=== PATIENT | female | born 1960 | race Hispanic/Latino ===

== ENCOUNTER 2016-07-07 11:30 | Day surgery (SDC) | payer OTHER ==
[~2016-07-07] VITALS: Ht 157.5 cm; Wt 85.5 kg
--- NOTE | 2016-07-07 07:28 | PCM.HPANE ---
Patient Data Surgeon Admitting Provider: Attending Provider:Wilmer Burns MD Primary Care Physician:Isidoro Sandoval MD Other Provider:Assoc[facility]ylie[facility]bold Anesthesia Reason for Visit Screening Ht/WT & BMI Body Mass Index Allergies Coded Allergies: No Known Allergies (Unverified , 07/05/16) Medications Reported Medications Darunavir Ethanolate (Prezista)800 Mg Mialbo447 Mg PO DAILY 07/07/16 Maraviroc (Selzentry)150 Mg Mrclrz360 Mg PO BID 07/07/16 Ritonavir (Norvir)100 Mg Ezushv753 Mg PO DAILY 07/07/16 Lamivudine 150 Mg Ukzzve249 Mg PO BID 07/07/16 [No meds H&P] No Conflict Check 07/05/16 History Other Pertinent History: HIV under treatment Stop/Bang Risk Assessment Category Category 1A: Patient has history of documented sleep apnea, and HAS NOT received any narcotic, sedative or anesthesia administration during this stay. Category 1B: Patient has history of documented sleep apnea, and HAS received any narcotic , sedative or anesthesia administration during this stay Category 2: Patient has SUSPECTED Obstructive Sleep Apnea, and HAS received any narcotic , sedative or anesthesia administration during this stay. Category 3: Patient has SUSPECTED Obstructive Sleep Apnea and HAS NOT received narcotic, sedative or anesthesia administration during this stay. Category 4: Outpatient in Procedural Areas with known sleep apnea or who screen positive for High Risk via the STOP/BANG questionnaire. Exam Exam General Appearance: Alert, Oriented X3, Cooperative, No Acute Distress HEENT/AIRWAY: MP 2 Lungs: Clear to Auscultation, Normal Air Movement Heart: Exam Unremarkable, Regular Rate/Rhythm, No Murmurs/Rubs/Gallops Plan Impression Patient chart reviewed, patient interviewed and anesthestic plan with risks, benefits, and alternatives discussed, and informed consent obtained. ASA Physical Status: ASA2 Mod Systemic Disease Anesthetic Plan: MAC Bene/Risks/Altern/Consents: Yes HP Complete Prior to Induction: Yes Chris Norton MD Jul 07, 2016 07:28
[~2016-07-07 11:30] MED LIST: Lactated Ringer's 1,000 ML IV ONE; [UNRECOGNIZED DRUG - REMARK]
[2016-07-07] MEDS ORDERED: fentaNYL-PF 50 mCg/mL 2 mL Inj ONE (11:31)
[2016-07-07] MEDS ORDERED: Propofol 10,000 mCg/mL 20 mL Inj ONE (11:31)
[2016-07-07 12:28] VITALS: BP 125/69; PULSE 65; RESP 14; O2SAT 97
[2016-07-07] MEDS ORDERED: DARU800T2 PO (12:34)
[2016-07-07] MEDS ORDERED: RITO100T PO (12:34)
[2016-07-07] MEDS ORDERED: MARA150T PO (12:34)
[2016-07-07] MEDS ORDERED: LAMI150T23 PO (12:34)
[2016-07-07] MEDS ORDERED: Lactated Ringer's 1,000 ML IV SCH (13:04)
[2016-07-07] MEDS ORDERED: MetoCLOpramide 5 mg/mL 2 mL Inj IVPUSH PRN (13:05)
[2016-07-07] MEDS ORDERED: Ondansetron 2 mg/mL 2 mL Inj IVPUSH PRN (13:05)
--- NOTE | 2016-07-07 13:05 | PCM.ANEP1 ---
Post Anesthesia Phase 1 PACU Phase 1 Assessment Vital Signs Vital Signs Date Time Temp Pulse Resp B/P Pulse Ox O2 Delivery O2 Flow Rate FiO2 07/07/16 12:28 36.2 65 14 125/69 97 Room Air Anesthetic Administered: MAC Level of Alertness: Awake, talking Pain: No Nausea or Vomiting: No Oxygen Delivery: Nasal Cannula Lungs: Clear to Auscultation, Normal Air Movement Chris Norton MD Jul 07, 2016 13:05
[2016-07-07 13:09] VITALS: BP 121/72; PULSE 83; RESP 10; O2SAT 93
--- NOTE | 2016-07-07 13:12 | PCM.ANEP2 ---
Post Anesthesia Evaluation ASA/CMS Post Anesthesia VS in Patient's Normal Range?: Yes Resp Stable; Airway Patent?: Yes CV Function & Hydration Stable: Yes Mental Status Recovered?: Yes Pain control Satisfactory?: Yes N/V Control Satisfactory?: Yes Chris Norton MD Jul 07, 2016 13:12
[2016-07-07 13:19] VITALS: BP 121/71; PULSE 86; RESP 10; O2SAT 96
--- NOTE | 2016-07-07 14:06 | ENDO ---
[address] [address] ENDOSCOPY PROCEDURE PATIENT: JUDITH ARCOS : 1960 MR#: [id number] ADMIT: 07/07/2016 JOB ID: [id number] OPERATION: Colonoscopy. PREOPERATIVE DIAGNOSIS(ES): Colorectal cancer. POSTOPERATIVE DIAGNOSIS(ES): Small internal hemorrhoids. ANESTHESIA: Monitored anesthesia care. COMPLICATIONS: None. BLOOD LOSS: Minimal. DESCRIPTION OF PROCEDURE: After the risks and benefits were explained to the patient, informed consent was obtained. After anesthesia administered, the colonoscope was inserted per rectum to the cecum and the mucosa carefully examined. Prep of the patient was excellent. After the procedure was done, the scope was withdrawn and the procedure terminated. FINDINGS: Upon inspection of the anus, there was evidence of anal skin tags that were seen during the examination. During the entire colonoscopy procedure there was no evidence of colon polyps, masses, or lesions that were seen. Retroflexion showed small internal hemorrhoids. IMPRESSION: Small internal hemorrhoids. RECOMMENDATIONS: Stool softer as needed. Next colonoscopy in 10 years for colorectal cancer screening.
[2016-07-12] MEDS ORDERED: HIV PO (15:06)
[2016-07-12] MEDS ORDERED: GABA-502 PO (15:06)
[2016-07-12] MEDS ORDERED: TRAZ-115 PO (15:06)
[2016-07-12] MEDS ORDERED: NAPR500T5 PO (15:06)
[2016-07-12] MEDS ORDERED: BACL10TA PO (15:06)
== END 2016-07-07 23:59 | disposition home or self-care (01) ==
LOC: END 11:30
PROVIDERS: ATTEND Internal Medicine Gastroenterology
DX: Z12.11 Encounter for screening for malignant neoplasm of colon (principal); K64.8 Other hemorrhoids; M79.7 Fibromyalgia; R68.89 Other general symptoms and signs; Z21 Asymptomatic human immunodeficiency virus [HIV] infection status
CPT/HCPCS: G0105; J2250; J3010; J7120

== ENCOUNTER 2016-07-14 12:32 | Day surgery (SDC) | payer OTHER ==
[2016-07-14] VITALS (8 sets, daily range): BP systolic 120–146; BP diastolic 67–84; PULSE 67–72; RESP 15–20; O2SAT 94–100
[~2016-07-14] VITALS: Ht 157.5 cm; Wt 84.2 kg
[~2016-07-14 12:32] MED LIST changes: +BACL10TA PO; +CeFAZolin Inj 2 GM in IV Premix 1 EACH IV ONE; +DARU800T2 PO; +GABA-502 PO; +HIV PO; -Lactated Ringer's 1,000 ML IV ONE; +Lactated Ringer's 1,000 ML IV SCH; +MARA150T PO; +NAPR500T5 PO; +RITO100T PO; +TRAZ-115 PO; -[UNRECOGNIZED DRUG - REMARK]
[2016-07-14] MEDS ORDERED: MetoCLOpramide 5 mg/mL 2 mL Inj ONE (12:33)
[2016-07-14] MEDS ORDERED: Ondansetron 2 mg/mL 2 mL Inj ONE (12:33)
[2016-07-14] MEDS ORDERED: Propofol 10,000 mCg/mL 20 mL Inj ONE (12:33)
[2016-07-14] MEDS ORDERED: Dexamethasone 4 mg/mL Inj ONE (12:33)
[2016-07-14] MEDS ORDERED: fentaNYL-PF 50 mCg/mL 2 mL Inj ONE (12:33)
[2016-07-14] MEDS ORDERED: Lactated Ringer's 1,000 ML IV ONE (12:50)
[2016-07-14] MEDS ORDERED: CeFAZolin Inj 2 gm / 50mL D5W IV ONE (13:13)
[2016-07-14] MEDS ORDERED: Bupivacaine Liposome 1.3% 20 mL Inj INFILTRATE ONE (13:55)
[2016-07-14] MEDS ORDERED: oxyCODONE-Acetamin 5-325 mg Tablet PO PRN (14:30)
[2016-07-14] MEDS ORDERED: Lactated Ringer's 500 ML IV PRN (14:36)
[2016-07-14] MEDS ORDERED: Lactated Ringer's 1,000 ML IV SCH (14:36)
[2016-07-14] MEDS ORDERED: MetoCLOpramide 5 mg/mL 2 mL Inj IVPUSH PRN (14:40)
[2016-07-14] MEDS ORDERED: Ondansetron 2 mg/mL 2 mL Inj IVPUSH PRN (14:40)
[2016-07-14] MEDS ORDERED: Dexamethasone 4 mg/mL Inj IVPUSH PRN (14:40)
[2016-07-14] MEDS ORDERED: fentaNYL-PF 50 mCg/mL 2 mL Inj IVPUSH PRN (14:40)
[2016-07-14] MEDS ORDERED: EPHEDrine Sulfate 50 mg/mL Inj IVPUSH PRN (14:40)
[2016-07-14] MEDS ORDERED: HYDROmorphone 1 mg/mL Inj IVPUSH PRN (14:40)
[2016-07-14] MEDS ORDERED: Phenylephrine 10,000 mCg/mL Inj IVPUSH PRN (14:40)
--- NOTE | 2016-07-14 15:00 | OP ---
[address] [address] OPERATIVE REPORT PATIENT: JUDITH ARCOS : 1960 MR#: [id number] ADMIT: 07/14/2016 JOB ID: [id number] DATE OF SURGERY: 07/14/2016 ANESTHESIA: General. PREOPERATIVE DIAGNOSIS(ES): 1. Human immunodeficiency virus. 2. Symptomatic hemorrhoids. POSTOPERATIVE DIAGNOSIS(ES): 1. Human immunodeficiency virus. 2. Symptomatic hemorrhoids. OPERATION: One column internal-external hemorrhoidectomy and one column internal hemorrhoidectomy. SURGEON: Dr. Romulo Montes. LAB SUPPORT SERVICE TECH: John Bush PA-C (the sales service assistant was required for the safe and timely completion of the case). COMPLICATIONS: None. ESTIMATED BLOOD LOSS: Minimal. CONDITION: Satisfactory. SPECIMEN: 1. Left posterior internal/external hemorrhoids. 2. Right internal hemorrhoids. FINDINGS: She had enlarged hemorrhoids in the left posterior location and the right anterior. The left posterior external component had a little bit of fungating growth suggestive of condyloma. INDICATIONS/SIGNIFICANT HISTORY: The patient is a 56-year-old female with a history of HIV who was referred to me for complaint of an anal growth. She described constipation off and on and the painful lump in the anal area. Exam demonstrated hemorrhoids, both internal and external. OPERATIVE TECHNIQUE: The patient was taken into the operating room and placed supine position. General anesthesia was administered and she was placed in the lithotomy and the perineum prepped and draped in a standard surgical fashion. A procedural pause performed. I began with digital rectal examination which was unremarkable. I then inserted a bivalve retractor into the anus and elected to proceed with left posterior hemorrhoid column with a large external and internal component. This was removed using the LigaSure Precise taking care to avoid the sphincter complex. This was then turned to the right anterior column which was removed in a similar fashion. Liposomal bupivacaine was injected at the base of the hemorrhoid column. The case was then considered closed. [facility]
--- NOTE | 2016-07-14 18:43 | PCM.ANEP1 ---
Post Anesthesia Phase 1 PACU Phase 1 Assessment Date of Service: Jul 14, 2016 ([id number]) Vital Signs Vital Signs Date Time Temp Pulse Resp B/P Pulse Ox O2 Delivery O2 Flow Rate FiO2 07/14/16 15:22 36 71 16 144/80 94 Room Air 07/14/16 15:00 72 20 134/74 95 Room Air 07/14/16 14:55 36.0 72 18 143/83 97 Room Air 07/14/16 14:45 36.0 67 15 123/67 100 Room Air 07/14/16 14:40 69 15 121/70 100 Simple Mask 7 07/14/16 14:35 71 15 133/69 100 Simple Mask 7 07/14/16 14:30 36.6 120/76 07/14/16 13:38 36.5 69 16 146/84 100 Room Air Anesthetic Administered: GA Level of Alertness: Awake, talking MAYO's with Equal Strength: Yes Pain: No Pain Scale Score: 0 Nausea or Vomiting: No Oxygen Delivery: Simple Mask Lungs: Normal Air Movement Franc Oh MD Jul 14, 2016 18:43
--- NOTE | 2016-07-14 18:43 | PCM.HPANE ---
Patient Data Date of Service: Jul 14, 2016 ([id number]) Surgeon Admitting Provider: Attending Provider:Romulo Montes MD Primary Care Physician:Isidoro Sandoval MD Other Provider:Ronaldo Leggett Anesthesia Reason for Visit Chronic Hemorrhoids Ht/WT & BMI Height (Feet): 5 Height (Inches): 2 Weight (Kilograms): 84.2 Body Mass Index 34.00 Allergies Coded Allergies: No Known Allergies (Unverified , 07/05/16) Past Anesthesia History Anesthesia History: Denies:: Abnormal Airway, Anesthesia Reactions, Difficult Intubation, Fam Anesthesia Reaction, Fam Malignant Hypertherm, Malignant Hyperthermia Diabetes History Hx Diabetes?: No MRSA MRSA: No Medications Hypertension Medication: No Home Meds Incl Beta Jose M: No Reported Medications Trazodone 50 Mg Mrxhvf38-42 Mg PO HS Ref 0 07/12/16 Naproxen 500 Mg Tablet.dr500 Mg PO BID PRN For Pain Ref 0 07/12/16 Gabapentin 300 Mg Ybbgfoi103 Mg PO BID Ref 0 07/12/16 Lamivudine/Zidovudine (Combivir Tablet)1 Each Tablet1 Each PO BID 30 Days 07/12/16 Baclofen 10 Mg Wuzeav92 Mg PO TID Ref 0 07/12/16 Darunavir Ethanolate (Prezista)800 Mg Rnjsft486 Mg PO DAILY 07/07/16 Maraviroc (Selzentry)150 Mg Onmhvp204 Mg PO BID 07/07/16 Ritonavir (Norvir)100 Mg Kadijc650 Mg PO DAILY 07/07/16 Discontinued Reported Medications Lamivudine 150 Mg Kylazf284 Mg PO BID 07/07/16 [No meds H&P] No Conflict Check 07/05/16 History HEENT History: Denies:: Abnormal Airway Difficult Intubation Dysphagia Hearing Problem Denture Type: Full- Upper Hx of Heart Problems?: No Cardiovascular History: Denies:: AICD Atrial Fibrillation Chest Pain Hypertension Pacemaker Valvular Heart Disease Other Cardiac History: NO sob Hx of Respiratory Problem?: Yes Respiratory History: Positive for:: Asthma (INTERMITTENT) Pneumonia Denies:: COPD Cough Hemoptysis Oxygen Administration Tuberculosis Use of C-PAP Machine Use of Inhalers / NEBS Hx Neurologic Problems?: No Neurological History: Denies:: CVA Dementia Multiple Sclerosis Parkinson's Disease Seizures Other Neurological Pertinent: fibromyalgia Hx of GI Problems?: Yes Gastrointestinal History: Positive for:: Gall Bladder Disease (removed) Liver Disease (hepatitis C) Rectal Bleeding (hemorrhoids current admission problem) Denies:: Cirrhosis Diverticulitis Gastroesphageal Reflux Hiatal Hernia Other GI Pertinent History: hx of umbilical hernia repair Hx of Problems?: No Genitourinary History: Denies:: Kidney Stones Urinary Tract Infection Female Hx: Denies:: Currently Problems with Breasts? Skin History: Denies:: History Skin Disorders? Hx Musculoskeletal Problems?: Yes Musculoskeletal History: Positive for:: Fibromyalgia Denies:: Joint Replacement Musculoskeletal Trauma Myasthenia Gravis Osteoarthritis Psycho Social History: Denies:: Anxiety Hx Depression Hx Surgeries?: Yes (CSECTION, LAP ASA, ABD HERNIA REPAIR) Hx Any Other Health Problems?: Yes Other History: Denies:: Cancer Thyroid Disease Hx Diabetes: No Other Pertinent History: HIV positive on HAART tx; CD4 unknown - last month tested - normal levels per patient Hx Alcohol Use: NoHx Substance Use: No Smoking Status: Never Smoker Have You Smoked inLast 12 mo: No Stop/Bang Treated for Sleep Apnea?: No Do You Have a CPAP Machine?: No S-Snoring: Do You Snore Loudly: No T-Tired: feel tired, fatigued: No O-Obsered: Observed not breath: No P-Blood Pressure: treated: Yes B- Body Mass Index > 35 kg/m2: No A- Age over 50: No N- Neck Large Circumference: No G- Gender Male: No YOLANDA Risk Assessment: Low Risk, <3 Yes Risk Assessment Category Category 1A: Patient has history of documented sleep apnea, and HAS NOT received any narcotic, sedative or anesthesia administration during this stay. Category 1B: Patient has history of documented sleep apnea, and HAS received any narcotic , sedative or anesthesia administration during this stay Category 2: Patient has SUSPECTED Obstructive Sleep Apnea, and HAS received any narcotic , sedative or anesthesia administration during this stay. Category 3: Patient has SUSPECTED Obstructive Sleep Apnea and HAS NOT received narcotic, sedative or anesthesia administration during this stay. Category 4: Outpatient in Procedural Areas with known sleep apnea or who screen positive for High Risk via the STOP/BANG questionnaire. Exam Exam Vital Signs Vital Signs Date Time Temp Pulse Resp B/P Pulse Ox O2 Delivery O2 Flow Rate FiO2 07/14/16 15:22 36 71 16 144/80 94 Room Air 07/14/16 15:00 72 20 134/74 95 Room Air 07/14/16 14:55 36.0 72 18 143/83 97 Room Air 07/14/16 14:45 36.0 67 15 123/67 100 Room Air 07/14/16 14:40 69 15 121/70 100 Simple Mask 7 07/14/16 14:35 71 15 133/69 100 Simple Mask 7 07/14/16 14:30 36.6 120/76 07/14/16 13:38 36.5 69 16 146/84 100 Room Air General Appearance: Alert, Oriented X3, Cooperative, No Acute Distress HEENT/AIRWAY: MP 2, Neck Movement (FROM), Mouth Opening (3), Other (tmd3) Lungs: Normal Air Movement Heart: Exam Unremarkable, Regular Rate/Rhythm, Normal S1, Normal S2, No Murmurs /Rubs/Gallops Meds/Labs/Diagnostics Admission Meds Current Medications Cefazolin Sodium/ Dextrose 2 gm/ Premix 50 ml @ 100 mls/hr PREOP ONCE IV Last administered on 07/14/16 14:09; Start 07/14/16 at 06:00; Stop 07/14/16 at 06: 29; Status DC Lactated Ringer's (Lr) 1,000 ml @ ud STK-MED ONCE IV Last administered on 12:50; Start 07/14/16 at 12:50; Stop 07/14/16 at 13:02; Status DC Bupivacaine HCl (Exparel 1.3% Inj) 20 ml ONCE ONCE INFILTRATE Last administered on 07/14/16 14:12; Start 07/14/16 at 13:55; Stop 07/14/16 at 13:59; Status DC Plan Impression Patient chart reviewed, patient interviewed and anesthestic plan with risks, benefits, and alternatives discussed, and informed consent obtained. NPO Status: sip of water today ASA Physical Status: ASA3 Severe Disease Anesthetic Plan: GA Bene/Risks/Altern/Consents: Yes HP Complete Prior to Induction: Yes Franc Oh MD Jul 14, 2016 18:43
--- NOTE | 2016-07-14 18:44 | PCM.ANEP2 ---
Post Anesthesia Evaluation ASA/CMS Post Anesthesia VS in Patient's Normal Range?: Yes Resp Stable; Airway Patent?: Yes CV Function & Hydration Stable: Yes Mental Status Recovered?: Yes Pain control Satisfactory?: Yes N/V Control Satisfactory?: Yes Franc Oh MD Jul 14, 2016 18:44
--- NOTE | 2016-07-18 12:26 | PATH ---
SURGICAL PATHOLOGY Attending Physician:Romulo Montes MD CASE STATUS: Signed Out PATIENT NAME: JUDITH ARCOS PID: [id number] : 1960 DATE COLLECTED:07/14/2016 00:00 SPECIMEN: 1: Hemorrhoids 2: Hemorrhoids CLINICAL HISTORY: INTERNAL AND EXTERNAL HEMORRHOIDS 1). LEFT POSTERIOR HEMORRHOID 2). RIGHT ANTERIOR HEMORRHOID FINAL DIAGNOSIS: 1. Left Posterior Hemorrhoid: External hemorrhoid. No evidence of malignancy or dysplasia. 2. Right Anterior Hemorrhoid: Internal hemorrhoid. No evidence of malignancy or dysplasia. ICD10: K64 GROSS DESCRIPTION: Received are two formalin-filled containers, each labeled with the patient's name. 1. Received in formalin, labeled with the patient's name and "left posterior hemorrhoids" are three fragments of og[place], constricted tissue ranging in size from 1.0 x 0.5 x 0.4 cm to 1.7 x 0.8 x 0.5 cm. The fragments are inked and registration representative sections are submitted in cassette 1A. 2. Received in formalin, labeled with the patient's name and "right anterior hemorrhoid" is one fragment of firm, wrinkly oglesby tissue measuring 1.5 x 0.8 x 0.8 cm. The surgical margin is inked blue. The fragment is divided with one registration representative section submitted in cassette 2A. (RFL:[id number]) ICD-9 CODES: CPT CODES: 1: 49532 2: 41473 Electronically Signed Out Reggie Diggs MD [facility], [place] [address] Technical component performed at [facility], [facility] [address], [place], [address]
== END 2016-07-14 23:59 | disposition home or self-care (01) ==
LOC: SAS 12:32
PROVIDERS: ATTEND General Practice
PROC: 06BY0ZC Excision of Hemorrhoidal Plexus, Open Approach (ICD-10-PCS; principal; 2016-07-14 14:15)
DX: K64.8 Other hemorrhoids (principal); K64.4 Residual hemorrhoidal skin tags
CPT/HCPCS: 46260; J0690; J1100; J2250; J2405; J2765; J3010; J7120

== ENCOUNTER 2017-01-08 18:49 | Emergency (ER) | payer OTHER ==
[~2017-01-08 18:49] MED LIST changes: -CeFAZolin Inj 2 GM in IV Premix 1 EACH IV ONE; -Lactated Ringer's 1,000 ML IV SCH
[2017-01-08 18:53] VITALS: BP 131/66; PULSE 102; RESP 20; O2SAT 94
--- NOTE | 2017-01-08 19:05 | ED.REPORT ---
HPI-General Illness Date of Service Jan 08, 2017 ED Provider: Rashid Fields MD Pt is a 56 year old female with a history of arthritis presents to the ED complaining of left leg/knee pain. The pain is localized in left knee and leg, radiating into her back. The pain has been present for some time but has worsened recently and is now affecting her mobility. The pt has also noticed swelling in the leg, but denies leg weakness. She has not been seen for these symptoms. Nursing Notes Stated Complaint: CHEST PAIN Chief Complaint: Extremity Trauma Nursing Notes Reviewed: Yes Allergies: Coded Allergies: No Known Allergies (Unverified , 01/08/17) Scheduled Baclofen (Baclofen) 10 Mg Tablet 10 MG PO TID Darunavir Ethanolate (Prezista) 800 Mg Tablet 800 MG PO DAILY Gabapentin (Gabapentin) 300 Mg Capsule 300 MG PO BID Lamivudine/Zidovudine (Combivir Tablet) 1 Each Tablet 1 EACH PO BID Maraviroc (Selzentry) 150 Mg Tablet 150 MG PO BID Ritonavir (Norvir) 100 Mg Tablet 100 MG PO DAILY Trazodone (Trazodone) 50 Mg Tablet 25-50 MG PO HS Scheduled PRN Naproxen (Naproxen) 500 Mg Tablet.dr 500 MG PO BID PRN PRN For Pain General Time Seen by MD: 19:04 Chief Complaint Other (Left leg pain) Hx Obtained From: Patient, Son Arrived By: Walk-in Sudden in Onset?: No Onset Occurred: More than a week ago... Symptom Duration: Since onset Recent Healthcare: Recent doctor visit Similar Sx Previous: Yes Past Medical History Past Medical History Asthma Pneumonia Arthritis Past Surgical History abdominal hernia repair Reports: , Cholecystectomy Smoking History Never Smoker Social History Other Social History: Good social support Ambulatory Status Independent Review of Systems Full Review of Systems Respiratory: Denies: Non-productive cough, Shortness of breath Cardiovascular: Denies: Chest pain GI: Denies: Abdominal pain, Vomiting Musculoskeletal: Reports: Extremity pain, Extremity swelling, Denies: Back pain, Neck pain Skin: Denies Rash Neurologic: Denies: Weakness Complete sys rev & neg: except as marked. Physical Exam Vital Signs Vital Signs Date Time Temp Pulse Resp B/P Pulse Ox O2 Delivery O2 Flow Rate FiO2 01/08/17 21:32 36.8 102 16 129/77 98 Room Air 01/08/17 18:53 36.2 102 20 131/66 94 Room Air Initial VS: Reviewed General/Constitutional: Awake, Alert Head / Eyes: Atraumatic, Normocephalic, PERRL, EOMI ENT: Atraumatic, Airway patent, Mucous membranes moist Neck: Atraumatic, Supple, Full range of motion Respiratory / Chest: Atraumatic, Breath sounds NL, Breath sounds = bilat, No respiratory distress Cardiovascular: Heart rate NL, Regular rhythm, Heart sounds NL, No gallop, No murmurs, No rubs Abdomen: Atraumatic, Soft, Non-tender Back: Atraumatic, Full range of motion Upper Extremities Upper Extremity / MS: Atraumatic, Full range of motion Lower Extremity / Pelvis / MS: Neurologic intact, Vascular intact superficial varicosities of bilateral lower extremities no calf tenderness good DP and PT pulses tenderness diffusely about the left knee mild effusion present no redness or warmth no obvious fracture or dislocation of the left knee Skin: Color NL, No rash, Warm, Dry Neurologic: Oriented X3, Speech NL, No motor deficits, No sensory deficits Psychiatric: Affect NL, Mood NL Interpretation & Diagnostics Interpretation & Diagnostics: Venous Duplex US: IMPRESSION: No sonographic evidence of left lower extremity deep venous thrombus. Dictated by: Cruz Gottlieb M.D. on 01/08/2017 at 21:08 Approved by: Cruz Gottlieb M.D. on 01/08/2017 at 21:08 X-Ray Interpretation Xray Interpretation: IMPRESSION: No acute fractures or dislocations. Small left knee joint effusion. Dictated by: Cruz Gottlieb M.D. on 01/08/2017 at 20:20 Approved by: rCuz Gottlieb M.D. on 01/08/2017 at 20:21 X-Ray Ordered: Knee left Interpretation / Wet Read by: Interpret - Radiologist Re-Eval/Medical Decision Med Decision/Clinical Course Pt is a 56 year old female with a history of arthritis presents to the ED complaining of left leg/knee pain. The pain is localized in left knee and leg, radiating into her back. The pain has been present for some time but has worsened recently and is now affecting her mobility. The pt has also noticed swelling in the leg, but denies leg weakness. She has not been seen for these symptoms. Here in the emergency department the patient was afebrile stable vital signs and examination as above. The patient received a blow medication with good effect: 30 mg of IM Toradol Venous Duplex US: IMPRESSION: No sonographic evidence of left lower extremity deep venous thrombus. Left Knee X-Ray: IMPRESSION: No acute fractures or dislocations. Small left knee joint effusion. At this time, there is no evidence of DVT. No evidence of fracture or dislocation. No redness or warmth suggestive of septic arthritis. Patient neurovascularly intact in the affected extremity. Overall presentation is most consistent with exacerbation of her chronic arthritis pain. She reports dramatic improvement after receiving Toradol. Advised to continue ibuprofen, apply ice packs. She has been referred to orthopedic surgery for consideration of steroid injections in the future should she continue to have pain. Prior to discharge follow-up and return precautions were reviewed in detail with the patient who verbalized understanding and agreement with the plan. The patient was discharged in stable condition. Time of Eval: 20:50 Patient Status: Condition improved Re-Evaluation/Progress Note: Pt rechecked, who is resting. The diagnosis and plan for discharge are discussed. The pt understands and agrees with the plan. All questions are addressed at this time. Counseled Regarding: Diagnosis, Lab results, Need for follow-up, When/why to return to ED Discharge & Departure Primary Impression: Left knee pain Chronicity: acute Qualified Code: M25.562 - Pain in left knee Additional Impressions: Left leg swelling History of arthritis Disposition: Home Discharge Condition All VS Reviewed: Yes Condition: Stable Patient Instructions: Arthritis (ED), Knee Pain (ED) Additional Instructions: Thank you for seeking care at the emergency room. It is difficult for us to make definitive diagnoses in the ED but we believe that you are experiencing arthritis causing the pain in your knee. Our primary goal today in the Emergency Department was to evaluate you for any life-threatening conditions. Your evaluation was reassuring. Take Tylenol 650mg four times daily. Wear an Gabriel wrap and ice the knee for additional relief. You should follow-up with your primary doctor in the next week. Follow up with orthopedics if your pain does not improve. You should return to the Emergency Department immediately if you develop swelling, redness, fevers, vomiting, cough, shortness of breath, chest pain, lightheadedness, weakness or any other concerning signs or symptoms. Thank you for letting us partake in your care today. Mana por la bsqueda de atencin en la shashi de emergencias. Es difcil para nosotros hacer diagnsticos definitivos en el ED, dagoberto creemos que tiene artritis que causa dolor en la rodilla. Nuestro principal objetivo hoy en urgencias fue evaluArte para cualquier condici n peligrosa para la corrie. Tena evaluacin era tranquilizadora. Veteran Tylenol 650mg cuatro veces al da. Usar un abrigo de Gabriel y la rodilla para alivio adicional de hielo. Deberas de seguimiento con tena mdico de atencin primaria en la prxima semana. Seguimiento con Ortopedia si tena dolor no mejora. Usted debe devolver al Departamento de emergencia inmediatamente si presenta hinchazn, enrojecimiento, fiebre, vmitos, tos, dificultad para respirar, dolor en el pecho, mareos, debilidad o cualquier otro relativo a las sami o s ntomas. Mana por dejarnos participar en tena atencin hoy en da. Referrals: Isidoro Sandoval MD (PCP) Emeka Sanchez MD Scribe Attestation Portions of this note were transcribed by Shira Gonzales. I, Dr. Fields personally performed the history, physical exam and medical decision-making; I reviewed and confirmed the accuracy of the information in the transcribed note. copies to: Emeka Sanchez MD; Isidoro Sandoval MD, Beck O MD Jan 08, 2017 19:05 SHIRA GONZALES Jan 08, 2017 19:43
--- NOTE | 2017-01-08 20:22 | DRSVH ---
PROCEDURE: X-RAY LEFT KNEE, THREE VIEWS ([id number]) INDICATIONS: pain TECHNIQUE: 3 views of the knee were acquired. COMPARISON: None. FINDINGS: Bones: No fractures or dislocations. No suspicious bony lesions. Soft tissues: Small joint effusion. No suspicious soft tissue calcifications. IMPRESSION: No acute fractures or dislocations. Small left knee joint effusion. Dictated by: Cruz Gottlieb M.D. on 01/08/2017 at 20:20 Approved by: Cruz Gottlieb M.D. on 01/08/2017 at 20:21
--- NOTE | 2017-01-08 21:09 | DRSVH ---
PROCEDURE: US VEINOUS LEG DUPLEX UNILATERAL, LEFT INDICATIONS: swollen, tender TECHNIQUE: Real-time imaging, as well as color and pulse Doppler interrogation, were performed of the lower extr emity deep veins from the inguinal ligament to the popliteal fossa. COMPARISON: None. FINDINGS: The deep veins are normally compressible, and free of intraluminal thrombus. Color and pu lse Doppler demonstrate normal phasic intraluminal flow. There is normal augmentation response to di stal compression maneuver. IMPRESSION: No sonographic evidence of left lower extremity deep venous thrombus. Dictated by: Cruz Gottlieb M.D. on 01/08/2017 at 21:08 Approved by: Cruz Gottlieb M.D. on 01/08/2017 at 21:08
[2017-01-08 21:32] VITALS: BP 129/77; PULSE 102; RESP 16; O2SAT 98
== END 2017-01-08 21:33 | disposition home or self-care (01) ==
LOC: SED 18:49
DX: M25.562 Pain in left knee (principal); R60.0 Localized edema; J45.909 Unspecified asthma, uncomplicated; Z87.39 Personal history of other diseases of the musculoskeletal system and connective tissue; Z90.49 Acquired absence of other specified parts of digestive tract
CPT/HCPCS: 73562; 93970; 96372; 99285; J1885